=== PATIENT | male | born 1950 | race Caucasian/White ===

== ENCOUNTER → 2020-04-21 | Outpatient (CLI) | payer BC, MEDICARE | LOC: COL.RAD 09:20 | DX: C61 Malignant neoplasm of prostate (principal) | CPT/HCPCS: A9503 ==

== ENCOUNTER 2020-05-27 12:06 | Inpatient (IN) | payer MEDICARE, BC ==
[~2020-05-27] VITALS: Ht 172.7 cm; Wt 88.9 kg
[2020-11-01] VITALS (11 sets, daily range): BP systolic 96–134; BP diastolic 56–77; PULSE 51–72; TEMP 97.6–98.7
[2020-11-01] MEDS ORDERED: TRULICITY3 MG/0.5 M SQ (06:21)
[2020-11-01] MEDS ORDERED: TRULICITY1.5 MG/0.5 SQ ×2 (06:23→06:24)
[2020-11-01] MEDS ORDERED: ZIAC 2.5/6.25MG1 TAB PO (06:25)
[2020-11-01] MEDS ORDERED: CRESTOR20 MG PO (06:25)
[2020-11-01] MEDS ORDERED: JARDIANCE25 PO (06:26)
[2020-11-01] MEDS ORDERED: GLUCOPHAGE XR500 M1 PO ×2 (06:27)
[2020-11-01] MEDS ORDERED: TRULICITY0.75 MG/0. SQ (06:29)
[2020-11-01] MEDS ORDERED: ONE-A-DAY ESSE1 EACH PO (06:31)
--- NOTE | 2020-11-01 06:32 | NUR ---
TO RM 8 AT 0530- CALL LIGHT IN REACH AT BEDSIDE.
--- NOTE | 2020-11-01 12:25 | NUR ---
Pt recently arrived to the floor. He is alert and oriented although drowsy. He is very quiet and mostly just nods his head. incision sites x6 are all well approximated with no drainage noted. Pt reports have some pain in his penis, otherwise states he feels well. Gave him some ice water which he tolerated. He reports not wanting anything else to eat or drink at this time
--- NOTE | 2020-11-01 18:12 | NUR ---
Pt has done well this afternoon. No complaints of pain at this time. He tolerated clear liquids, advanced to full liquids for dinner. Incisions remain well approximated with no drainge noted.
--- NOTE | 2020-11-01 22:00 | NUR ---
Patient has no complaints of pain. Got up and ambulated in the halls. One of the incisions had a small amount of drainage out. Indwelling catheter draining blood-tinged urine.
[2020-11-02 04:59] VITALS: BP 94/58; PULSE 57; TEMP 97.8
[2020-11-02 06:52] LABS: HEMOGLOBIN 11.7 g/dl (13.5-18.0)
[2020-11-02 06:53] LABS: HEMATOCRIT 34.9 % (42.0-52.0)
[2020-11-02 07:09] LABS: CALCIUM 8.2 mg/dL (8.4-10.2); CREATININE, serum 0.94 (0.66-1.25); POTASSIUM 3.8 mmol/L (3.4-5.0)
[2020-11-02 08:01] VITALS: BP 108/64; PULSE 61; TEMP 97.9
--- NOTE | 2020-11-02 08:37 | NUR ---
Pt doing well this morning, no pain complaints. Output is clearer and yellow in color. He is sitting on the side of the bed waiting on his breakfast. Dr Blas has been in to see patient. Dicussed catheter care and the use of a leg bag vs dependent drainage bag while at home as well as signs and symptoms of infection and incision care.
--- NOTE | 2020-11-02 12:06 | NUR ---
Pt continues to do well. Reviewed catheter care as well as utilitzing the leg bag if needed. No pain complaints and continues to ambulate often
[2020-11-02 12:10] VITALS: BP 102/56; PULSE 59; TEMP 98.9
--- NOTE | 2020-11-02 12:49 | NUR ---
First visit from the dental laboratory worker. No needs right now.
--- NOTE | 2020-11-02 16:59 | NUR ---
Discharge instructions reviewed with patient and spouse, including carrasco catheter care, verbalized understanding. Discharged via wheelchair to auto/home with spouse at 1700.
== END 2020-11-02 17:00 | disposition home or self-care (01) | DRG 708 ==
LOC: SURG 06-17 07:30 → INPTSU 11-01 05:19 → SURG 11-01 07:30
PROVIDERS: ADMIT Urology
PROC: 07BC4ZZ Excision of Pelvis Lymphatic, Percutaneous Endoscopic Approach (ICD-10-PCS; 2020-11-01)
PROC: 0VT04ZZ Resection of Prostate, Percutaneous Endoscopic Approach (ICD-10-PCS; principal; 2020-11-01 07:30)
DX: C61 Malignant neoplasm of prostate (principal); I10 Essential (primary) hypertension; E78.5 Hyperlipidemia, unspecified; Z85.828 Personal history of other malignant neoplasm of skin; Z20.822 Contact with and (suspected) exposure to COVID-19
CPT/HCPCS: A4314; A9284; J0690; J1815; J1885; J2405; J2704; J3010; J7120

== ENCOUNTER → 2020-06-13 | Outpatient (CLI) | payer MEDICARE, BC | LOC: COL.LAB 08:00 | DX: U07.1 COVID-19 (principal) ==

== ENCOUNTER → 2020-10-31 | Outpatient (CLI) | payer MEDICARE, BC ==
[~2020-10-31] MED LIST: CRESTOR20 MG PO; GLUCOPHAGE XR500 M1 PO; JARDIANCE25 PO; ONE-A-DAY ESSE1 EACH PO; TRULICITY0.75 MG/0. SQ; TRULICITY1.5 MG/0.5 SQ; TRULICITY3 MG/0.5 M SQ; ZIAC 2.5/6.25MG1 TAB PO
== END ==
LOC: COL.LAB 09:00
DX: C61 Malignant neoplasm of prostate (principal)